=== PATIENT | male | born 1975 | race African-American/Black ===

== ENCOUNTER → 2018-12-12 | Outpatient (REF) | payer OTHER ==
[~2018-12-12] MED LIST: CLOZAPINE100 MG PO; MOBIC7.5 M1 PO; OMEPRAZOLE20 M2 PO; SUCRALFATE1 GM PO
[2018-12-12 11:45] LABS: HEMATOCRIT 40.3 % (39.0-50.0); HEMOGLOBIN 12.7 g/dl (14.0-18.0); IMMATURE GRANULOCYTES 0.2 % (0.0-5.0); MEAN CORPUSCULAR HGB 27.4 pG CALC (26.0-32.0); MEAN CORPUSCULAR HGB CONC 31.5 g/L CALC (32.0-36.0); NEUT# 3.22 thou/uL (1.82-7.42); RED BLOOD COUNT 4.63 mill/uL (4.70-6.10); RED CELL DISTRI WIDTH 13.4 % (11.5-15.5)
== END | disposition home or self-care (01) ==
LOC: LAB 11:19
DX: Z51.81 Encounter for therapeutic drug level monitoring (principal); Z79.899 Other long term (current) drug therapy

== ENCOUNTER 2020-09-21 18:41 | Emergency (ER) | payer OTHER ==
[~2020-09-21] VITALS: Ht 182.9 cm; Wt 90.0 kg
[2020-09-21] MEDS ORDERED: SUCRALFATE1 GM PO (19:13)
[2020-09-21] MEDS ORDERED: OMEPRAZOLE DR40 MG PO (19:13)
[2020-09-21] MEDS ORDERED: FAMOTIDINE20 M1 PO (19:14)
[2020-09-21] MEDS ORDERED: HYDROXYCHLOR200 M1 PO (19:14)
[2020-09-21] MEDS ORDERED: CLOZAPINE ODT100 MG PO (19:15)
[2020-09-21] MEDS ORDERED: NORVASC5 M1 PO (19:16)
[2020-09-21] MEDS ORDERED: MECLIZINE12.5 M1 PO (19:16)
[2020-09-21] MEDS ORDERED: TIZANIDINE4 MG PO (19:17)
[2020-09-21 20:22] LABS: HEMATOCRIT 40.9 % (39.0-50.0); HEMOGLOBIN 12.8 g/dl (14.0-18.0); IMMATURE GRANULOCYTES 0.6 % (0.0-5.0); MEAN CELL VOLUME 86.1 fL CALC (80.0-100.0); MEAN CORPUSCULAR HGB 26.9 pG CALC (26.0-32.0); MEAN CORPUSCULAR HGB CONC 31.3 g/dL CAL (32.0-36.0); NEUT# 2.84 thou/uL (1.82-7.42); RED BLOOD COUNT 4.75 mill/uL (4.70-6.10); RED CELL DISTRI WIDTH 13.7 % (11.5-15.5)
[2020-09-21 20:25] LABS: URINE BILIRUBIN - DIPSTICK NEGATIVE (NEGATIVE); URINE BLOOD DIPSTICK TRACE-LYSED (NEGATIVE); URINE COLOR YELLOW; URINE GLUCOSE - DIPSTICK NEGATIVE (NEGATIVE); URINE KETONE NEGATIVE (NEGATIVE); URINE LEUK ESTERASE NEGATIVE (NEGATIVE); URINE NITRITE - DIPSTICK NEGATIVE (Negative); URINE PROTEIN - DIPSTICK NEGATIVE (NEG-TRACE); URINE UROBILINOGEN - DIPSTICK 0.2 E.U./dL (0.2)
[2020-09-21 20:42] LABS: ALBUMIN 4.7 g/dL (3.2-5.0); ALKALINE PHOSPHATASE 92 u/l (38-126); AMYLASE 74 u/l (30-110); ANION GAP 12 (6-22 (CALC)); BILIRUBIN, TOTAL 0.4 mg/dL (0.0-1.4); BUN 14 mg/dL (9-20); BUN/CREATININE RATIO 15 (12-20 (CALC)); CARBON DIOXIDE 28 mmol/l (22-30); CHLORIDE 107 mmol/l (95-108); ETHYL ALCOHOL 0 mg/dl (0-30); GFR > 60 ML/MIN (>=60 (CALC)); GFR FOR AFR.AMER. > 60 ML/MIN (>=60 (CALC)); LIPASE 67 u/l (23-300); POTASSIUM 3.5 mmol/l (3.5-5.1); SGOT/AST 43 u/l (17-59); SODIUM 143 mmol/l (137-146); TOTAL PROTEIN 7.7 g/dL (6.3-8.2)
[2020-09-21] MEDS ORDERED: PROTONIX40 MG PO (21:05)
[2020-09-21] MEDS ORDERED: ZOFRAN4 MG/TAB PO (21:05)
[2020-09-21 21:10] VITALS: BP 142/87
== END 2020-09-21 21:20 | disposition home or self-care (01) ==
LOC: ED 18:41
DX: K29.70 Gastritis, unspecified, without bleeding (principal); I10 Essential (primary) hypertension; Z20.828 Contact with and (suspected) exposure to other viral communicable diseases
CPT/HCPCS: S0164

== ENCOUNTER 2021-04-21 15:35 | Emergency (ER) | payer OTHER ==
[~2021-04-21] VITALS: Ht 182.9 cm; Wt 95.0 kg
[~2021-04-21 15:35] MED LIST changes: +CLOZAPINE ODT100 MG PO; +FAMOTIDINE20 M1 PO; +HYDROXYCHLOR200 M1 PO; +MECLIZINE12.5 M1 PO; +NORVASC5 M1 PO; +OMEPRAZOLE DR40 MG PO; +PROTONIX40 MG PO; +TIZANIDINE4 MG PO; +ZOFRAN4 MG/TAB PO
[2021-04-21 16:42] LABS: HEMATOCRIT 39.7 % (39.0-50.0); HEMOGLOBIN 12.5 g/dl (14.0-18.0); IMMATURE GRANULOCYTES 0.2 % (0.0-5.0); MEAN CELL VOLUME 87.4 fL CALC (80.0-100.0); MEAN CORPUSCULAR HGB 27.5 pG CALC (26.0-32.0); MEAN CORPUSCULAR HGB CONC 31.5 g/dL CAL (32.0-36.0); NEUT# 3.83 thou/uL (1.82-7.42); RED BLOOD COUNT 4.54 mill/uL (4.70-6.10)
[2021-04-21 16:51] LABS: ALBUMIN 4.2 g/dL (3.2-5.0); ALKALINE PHOSPHATASE 74 u/l (38-126); ANION GAP 12 (6-22 (CALC)); BILIRUBIN, TOTAL 0.5 mg/dL (0.0-1.4); BUN 15 mg/dL (9-20); BUN/CREATININE RATIO 16 (12-20 (CALC)); CARBON DIOXIDE 25 mmol/l (22-30); CHLORIDE 107 mmol/l (95-108); GFR > 60 ML/MIN (>=60 (CALC)); GFR FOR AFR.AMER. > 60 ML/MIN (>=60 (CALC)); SGOT/AST 34 u/l (17-59); SODIUM 140 mmol/l (137-146); TOTAL PROTEIN 7.2 g/dL (6.3-8.2)
[2021-04-21 17:03] LABS: MYOGLOBIN 71 ng/mL (0 - 121)
[2021-04-21 18:09] LABS: URINE BILIRUBIN - DIPSTICK NEGATIVE (NEGATIVE); URINE BLOOD DIPSTICK NEGATIVE (NEGATIVE); URINE COLOR YELLOW; URINE GLUCOSE - DIPSTICK NEGATIVE (NEGATIVE); URINE KETONE NEGATIVE (NEGATIVE); URINE LEUK ESTERASE NEGATIVE (NEGATIVE); URINE PROTEIN - DIPSTICK TRACE mg/dL (NEG-TRACE); URINE SPECIFIC GRAVITY 1.025
[2021-04-21 18:10] LABS: URINE NITRITE - DIPSTICK NEGATIVE (Negative)
[2021-04-21] MEDS ORDERED: LOPRESSOR25 M1 PO (18:12)
[2021-04-21 18:34] LABS: TSH, 3RD GENERATION 0.87 uIU/mL (0.47 - 4.68)
[2021-04-21 18:44] VITALS: BP 120/78
== END 2021-04-21 18:44 | disposition home or self-care (01) ==
LOC: ED 15:35
PROVIDERS: Emergency Medicine
DX: R00.2 Palpitations (principal); I10 Essential (primary) hypertension; Z20.822 Contact with and (suspected) exposure to COVID-19